=== PATIENT | female | born 1960 | race Caucasian/White ===

== ENCOUNTER → 2017-06-28 19:27 | Outpatient (CLI) | payer MEDICARE ==
[2015-10-21 06:17] VITALS: BMI 27.5
[~2017-06-28 19:27] MED LIST: CYMBALTA60 MG PO; DILAUDID2 MG PO; EFFEXOR XR75 MG PO; NORCO 10/325 TA1 TA1 PO; OXYCODONE HCL E20 MG PO; PRAVACHOL10 MG PO; ZANAFLEX4 MG PO
== END | disposition home or self-care (01) ==
LOC: D.MAMMO 06-20 13:30
DX: Z12.31 Encounter for screening mammogram for malignant neoplasm of breast (principal)